=== PATIENT | male | born 1965 | race Caucasian/White ===

== ENCOUNTER → 2017-06-23 | Outpatient (CLI) | payer OTHER ==
[~2017-06-23] MED LIST: ASPI81TA85 PO; CELE1CAP4 PO; CO Q100C10 PO; FISH1000 PO; FLAX1000 PO; HCTZ; HCTZ PO; LISI10TA2 PO; LISINOPRIL; LISINOPRIL PO; MULTCAP PO; NORCOTAB PO; REDCAP3 PO; SIMV20TA2 PO; SOMA350T PO; TIZA4CAP3 PO; TPS Cream TOP; [UNRECOGNIZED DRUG - CODE] PO
--- NOTE | 2017-06-23 19:25 | REP ---
MR BRAIN WITHOUT AND WITH CONTRAST: HISTORY: Sensory neural hearing loss. CONTRAST: ProHance 20 mL. Several punctate areas of increased signal intensity on T2 weighted images are present in the periventricular and subcortical white matter. This represents small vessel ischemic disease. There is no intraparenchymal hemorrhage, infarct, mass or midline shift. There is no abnormal enhancement. The ventricular system is normal in appearance. There is no extracerebral collection. There is no cerebellopontine angle mass. The inner ear structures are normal in appearance. The mastoid air cells and sinuses are clear. IMPRESSION: Minimal small vessel ischemic disease. Signed by Herman Yu MD 06/23/2017 07:26 P
== END ==
LOC: M RAD 17:35
PROVIDERS: ATTEND Otolaryngology
DX: H90.5 Unspecified sensorineural hearing loss (principal)
CPT/HCPCS: 70553; A9576